=== PATIENT | male | born 1955 | race Caucasian/White ===

== ENCOUNTER 2019-08-02 09:54 | Emergency (ER) | payer MEDICARE ==
[2019-08-02 10:46] VITALS: BP 118/74
--- NOTE | 2019-08-02 11:28 | UC ---
Throat Pain/Nasal Arslan HPI - HPI Summary HPI Summary: 4 week history (or greater) of not feeling well, with congestion, cough, some night sweats, and appetite loss. He is uncertain if he has lost weight, but knows that his clothing is looser. No nausea or vomiting. - History of Current Complaint Chief Complaint: UCRespiratory Stated Complaint: CONGESTION,COUGH Time Seen by Provider: 08/02/19 11:18 Hx Obtained From: Patient Onset/Duration: Gradual Onset, Lasting Weeks Severity: Moderate Pain Intensity: 0 Cough: Nonproductive Associated Signs & Symptoms: Positive: Negative - Epiglottits Risk Factors Epiglottis Risk Factors: Negative - Allergies/Home Medications Allergies/Adverse Reactions: Allergies Allergy/AdvReac Type Severity Reaction Status Date / Time No Known Allergies Allergy Verified 08/02/19 10:40 Home Medications: Home Medications Lisinopril TAB* [Prinivil TAB 10 MG*] 20 mg DAILY 08/02/19 [History Confirmed ] Meloxicam [Mobic] 15 mg DAILY 08/02/19 [History Confirmed 08/02/19] PMH/Surg Hx/FS Hx/Imm Hx - Additional Past Medical History Additional PMH: rheumatoid arthritis. Cardiovascular History: Hypertension, Other - valve incompetent. - Surgical History Surgical History: None - Family History Known Family History: Positive: Hypertension Negative: Cardiac Disease - Social History Alcohol Use: Daily Alcohol Amount: 1-2 beers/day Substance Use Type: None Smoking Status (MU): Never Smoked Tobacco Review of Systems All Other Systems Reviewed And Are Negative: Yes Constitutional: Positive: Fatigue, Other - daily intake of alcohol, denies concern about overuse. Skin: Positive: Negative Eyes: Positive: Negative ENT: Positive: Negative Respiratory: Positive: Cough. Negative: Shortness Of Breath Cardiovascular: Positive: Negative Gastrointestinal: Positive: Other - appetite loss, uncertain if losing weight. Genitourinary: Positive: Negative Motor: Positive: Negative Neurovascular: Positive: Negative Musculoskeletal: Positive: Arthralgia - hx of arthritis, takes meloxicam daily; has finger nodules. Neurological: Positive: Negative Psychological: Positive: Negative Is Patient Immunocompromised?: No Physical Exam Triage Information Reviewed: Yes Appearance: Well-Appearing, No Pain Distress Vital Signs: Initial Vital Signs Temp 98.5 F 08/02/19 10:41 Pulse 68 08/02/19 10:41 Resp 18 08/02/19 10:41 BP 118/74 08/02/19 10:41 Pulse Ox 99 08/02/19 10:41 Eyes: Positive: Conjunctiva Clear ENT: Positive: Pharynx normal, TMs normal. Negative: Sinus tenderness Neck: Positive: Supple, Nontender, No Lymphadenopathy Respiratory: Positive: Lungs clear, Normal breath sounds Cardiovascular: Positive: RRR, Murmur:Sys:Grade _?_/ - 3/6 murmur left lower sternal border radiates to apex. Abdomen Description: Positive: Nontender, No Organomegaly, Soft Musculoskeletal: Positive: Strength Intact, ROM Limited @ - fingers, decreased extension of right fifth digit. + white nodules on palmar surface of several PIP joints. Neurological Exam: Normal Psychological Exam: Normal Skin Exam: Normal Diagnostics - Radiology No standard instances Radiology Interpretation Completed By: ED Physician - No infiltrate seen. Throat Pain/Nasal Course/Dx - Course Course Of Treatment: NO ANTIBIOTIC INDICATED--RADIOLOGY READ STILL PENDING. LABS ORDERED TO EVALUATE MALAISE, WEIGHT LOSS AND NIGHT SWEATS. - Differential Dx/Diagnosis Differential Diagnosis/HQI/PQRI: Laryngitis, Sinusitis, Tonsillitis, Other - PNEUMONIA Provider Diagnosis: URI (upper respiratory infection) Discharge ED - Sign-Out/Discharge Documenting (check all that apply): Patient Departure All imaging exams completed and their final reports reviewed: No - Discharge Plan Condition: Stable Disposition: HOME Patient Education Materials: Upper Respiratory Infection (ED) Referrals: No Primary Care Phys,NOPCP [Primary Care Provider] - Additional Instructions: There is no apparent bacterial cause of your symptoms. Lab evaluation has been done to looks at blood count, chemistries and uric acid level. Please schedule a visit with your primary doctor to review these results and your symptoms because further testing might be needed. - Billing Disposition and Condition Condition: STABLE Disposition: Home
--- NOTE | 2019-08-02 16:13 | UC ---
- Progress Note Progress Note: Called Mr. Andrews to review formal report of chest xray, with no acute cardiopulmonary disease, + compression possibly in T9 vertebrae. He has no hx of back pain or trauma. Advised will await labs, and that follow up with his primary care is important to investigate cause of chronic symptoms. Course/Dx - Diagnoses Provider Diagnoses: URI (upper respiratory infection) Discharge ED - Sign-Out/Discharge Documenting (check all that apply): Post-Discharge Follow Up All imaging exams completed and their final reports reviewed: Yes - Discharge Plan Condition: Stable Disposition: HOME Patient Education Materials: Upper Respiratory Infection (ED) Referrals: No Primary Care Phys,NOPCP [Primary Care Provider] - Additional Instructions: There is no apparent bacterial cause of your symptoms. Lab evaluation has been done to looks at blood count, chemistries and uric acid level. Please schedule a visit with your primary doctor to review these results and your symptoms because further testing might be needed. - Billing Disposition and Condition Condition: STABLE Disposition: Home
[2019-08-03 11:19] LABS: Hematocrit 46 % (42-52); Hemoglobin 15.7 g/dL (14.0-18.0); Mean Corpuscular HGB Conc 34 g/dL (31-36); Mean Corpuscular Hemoglobin 32 pg (27-31); Mean Corpuscular Volume 94 fL (80-94); Mean Platelet Volume 7.7 fL (7.4-10.4); Platelet Count 337 10^3/uL (150-450); Red Blood Count 4.92 10^6 /uL (4.18-5.48); Red Cell Distribution Width 13 % (10-15); White Blood Count 9.2 10^3/uL (3.5-10.8)
[2019-08-03 11:44] LABS: TSH (Thyroid Stimulating Horm) 0.94 mcIU/mL (0.34-5.60)
[2019-08-03 11:55] LABS: Albumin 3.9 g/dL (3.2-5.2); Calcium 9.7 mg/dL (8.6-10.3); Potassium 4.8 mmol/L (3.5-5.0); Total Bilirubin 0.7 mg/dL (0.2-1.0)
[2019-08-03 12:01] LABS: Albumin/Globulin Ratio 1.1 (1-3); BUN/Creatinine Ratio 19.2 (8-20); EGFR African American 86.5 (>60); EGFR Non-African American 71.5 (>60); Globulin 3.6 g/dL (2-4); Total Protein 7.5 g/dL (6.4-8.9); Uric Acid 8.2 mg/dL (4.4-7.6)
[2019-08-03 12:02] LABS: ABS Basophils 0.1 10^3/ul (0-0.2); ABS Eosinophils 0.1 10^3/ul (0-0.6); ABS Lymphocytes 1.1 10^3/ul (1.0-4.8); ABS Monocytes 0.7 10^3/ul (0-0.8); ABS Neutrophils 7.1 10^3/ul (1.5-7.7); Eosinophil % 1.2 %; Lymphocyte % 12.5 %; Nucleated Red Blood Cells % 0.1
== END 2019-08-02 12:52 | disposition home or self-care (01) ==
LOC: UCCORT 09:54
DX: J06.9 Acute upper respiratory infection, unspecified (principal); M06.9 Rheumatoid arthritis, unspecified; I10 Essential (primary) hypertension; Z79.899 Other long term (current) drug therapy
CPT/HCPCS: 36415; 71046; 80053; 84443; 84550; 85025; 99211; G0463